=== PATIENT | male | born 1970 | race Caucasian/White ===

== ENCOUNTER 2023-05-04 15:29 | Emergency (ER) | payer OTHER, SELFPAY ==
--- NOTE | ~2023-05-04 | XR_ITS ---
EXAMINATION: XR SHOULDER, LEFT CLINICAL INFORMATION: Shoulder pain COMPARISON: None available. TECHNIQUE: AP external rotation, Grashey, scapular Y, and axillary views of the left shoulder. FINDINGS: No acute fracture or dislocation. Mild acromioclavicular arthritis. Glenohumeral and acromioclavicular alignment is anatomic with normal joint space. No abnormal soft tissue calcifications. XR/XR shoulder LT min 2V IMPRESSION: Mild acromioclavicular arthritis. No evidence of acute fracture or dislocation.
[2023-05-04 15:37] VITALS: BP 148/92; PULSE 96; RESP 18; TEMP 37.3; O2SAT 98
[2023-05-04 15:47] VITALS: BP 140/92; PULSE 100; O2SAT 96
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
[2023-05-04 18:02] VITALS: BP 129/86; PULSE 79; RESP 17; O2SAT 94
== END 2023-05-04 18:13 | disposition home or self-care (01) ==
PROVIDERS: Emergency Provider Emergency Medicine; PCP Internal Medicine
DX: M25.512 Pain in left shoulder (principal); S40.212A Abrasion of left shoulder, initial encounter; V43.52XA Car driver injured in collision with other type car in traffic accident, initial encounter; Y93.89 Activity, other specified; Y92.414 Local residential or business street as the place of occurrence of the external cause; Y99.9 Unspecified external cause status
CPT/HCPCS: 73030; 99282; 99283